=== PATIENT | male | born 1990 | race Caucasian/White ===

== ENCOUNTER 2016-05-28 12:09 | Inpatient (IN) | payer OTHER ==
--- NOTE | ~2016-05-28 | PN ---
Unit #: [id number] #: [id number] Patient: MATIAS REYES [id number] [facility] [address] [place] [address] [id number] I MR#: [id number] NAME: MATIAS REYES ROOM: P208 Age: 26 Sex: M Admission Date: 05/28/2016 : 1990 Attending Physician: Nilo Mccall M.D. Admitting Physician: Nilo Mccall M.D. Primary Care Physician: Generic Doctor Not In System [facility] PROGRESS NOTES DATE 05/29/2016 DISCUSSION Matias Reyes is a 26-year-old male seen on 05/29/2016. Patient interviewed. Chart reviewed. Obtained information from nursing staff. Patient was compliant, cooperative, redirectable. Patient's mood sad, dysphoric. Currently detoxing from heroin. Patient withdrawn, isolative. Still having withdrawal symptoms. No aggressive behavior. Complete review of system unremarkable. MENTAL STATUS EXAMINATION General appearance, patient dressed casually. Attention span, concentration fair. Oriented in place and person. Mood and affect sad, depressed, flat affect, withdrawn, isolative, guarded. Denied any thoughts of harming self or others but sad, depressed mood. Recent and remote memory poor. Insight and judgement poor. DIAGNOSES 1. Opiate use disorder, severe. 2. Mood disorder NOS. ASSESSMENT/PLAN Advised to continue with current medication and therapeutic protocol. Will monitor response to medication and make further adjustment of medication. Dictated by... Veronica Sam/zoë TD: 05/30/2016 16:29 JOB #: [id number] Unit #: [id number] #: [id number] Patient: MATIAS REYES [place] PROGRESS NOTES Page 1 of 1 X Nilo Mccall MD PROGRESS NOTE
--- NOTE | ~2016-05-28 | PA ---
Unit #: [id number] #: [id number] Patient: MATIAS CLAY [id number] [facility] [address] [place] [address] [id number] MR#: [id number] NAME: MATIAS CLAY ROOM: P208 Age: 26 Sex: M Admission Date: 05/28/2016 : 1990 Date of Assessment: Attending Physician: Nilo Mccall M.D. Admitting Physician: Nilo Mccall M.D. Primary Care Physician: Generic Doctor Not In System PSYCHIATRIC ASSESSMENT INFORMANT The patient's reliability, fair; chart reliability, good. CHIEF COMPLAINT Opioid abuse, methamphetamine abuse and depression. HISTORY OF PRESENT ILLNESS Matias Flores is a 26-year-old male with a long history of multiple treatment at [facility], [facility]. The patient lives in a [place]. The patient presented with heroin abuse, Xanax abuse, cannabis abuse, cocaine abuse. The patient reported that he is here for detox from [place]. The patient reported currently using IV heroin. The patient also reported using Xanax 2 bars, marijuana 1 blunt daily. The patient reported feeling of hopelessness, worthlessness, poor appetite, poor sleep, withdrawal symptom. The patient scored 10 on COWS and 8 on CIWA score. The patient needed inpatient admission at this time for psychiatric stabilization. The patient currently denied any suicidal or homicidal ideation. Denied any psychotic symptom. PAST PSYCHIATRIC HISTORY Please see above, multiple treatments. FAMILY HISTORY AND SOCIAL HISTORY Poor support system. Lives in a [place]. History of substance abuse in the family. MEDICAL HISTORY Remarkable for history of epilepsy. Musculoskeletal; muscle strength and tone, no atrophy or abnormal movement. Gait normal. MEDICATION HISTORY None. ALLERGIES No known drug allergies. SUBSTANCE ABUSE HISTORY The patient reported tobacco use, age of onset 17; history of marijuana abuse, age of onset 13; crack cocaine, age of onset 18; and LSD, age of onset 21; opioid, age of onset 15; amphetamine, age of onset 26; benzodiazepine, age of onset 15. The patient reported history of blackout, IV drug use, withdrawal symptoms. Currently reporting abdominal cramping, muscle cramping, diaphoresis, diarrhea, headache, irritability, Unit #: [id number] #: [id number] Patient: MATIAS CLAY nervousness, poor appetite. REVIEW OF SYSTEMS HEENT: Eyes, clear. Ears, nose, mouth, and throat; clear. CARDIOVASCULAR: Unremarkable. RESPIRATORY: Unremarkable. GI: Unremarkable. : Unremarkable. SKIN: Unremarkable. LYMPH NODE: Unremarkable. NEUROLOGIC: Unremarkable. ENDOCRINE: Unremarkable. HEMATOLOGIC: Unremarkable. ALLERGIC: Unremarkable. IMMUNOLOGIC: Unremarkable. MUSCULOSKELETAL: Muscle strength and tone, no atrophy or abnormal movement. Gait normal. MENTAL STATUS EXAMINATION CONSTITUTIONAL: Measurement of vital signs; temperature is 98.1, heart rate 108, respirations 18, blood pressure 119/70, height 6 feet 4 inches, weight 180 pounds. General appearance: The patient dressed casually. The patient did not show any facial deformity. MUSCULOSKELETAL: Please see above. PSYCHIATRIC EXAMINATION Description of speech; regular rate, normal volume. Description of thought process, circumstantial. Description of association; guarded, but denied any thoughts of harming self or others, but substance abuse. Description of the patient's judgment, concerning. Everyday activity, poor. Social situation, poor and concerning. Psychiatric condition, poor. Complete mental status examination; oriented in time, place, and person. Recent and remote memory, fair. Attention span and concentration, fair. Language, able to name object and repeat phrases. Fund of knowledge, aware of current event, passive vocabulary intact. Mood and affect, sad and dysphoric. Insight and judgment, fair to poor. ASSETS AND LIABILITIES Assets; the patient is articulate and able to take care of his ADL. Liability; history of substance abuse. ADMITTING DIAGNOSES Psychiatric: 1. Opioid abuse disorder, severe, F11.20. 2. Sedative-hypnotic use disorder, F13.20, moderate. 3. Cannabis abuse disorder, moderate, F12.20. 4. Cocaine use disorder, severe, F14.20. 5. Mood disorder, not otherwise specified. Secondary diagnosis: Deferred. Medical diagnosis: History of epilepsy. Stressors: Psychosocial stressors. PSYCHIATRIC PLAN AND TREATMENT GOAL AND DISCHARGE PLAN 1. Advised to admit the patient on the inpatient unit. Provide safe, Unit #: [id number] #: [id number] Patient: MATIAS CLAY supportive, and structured environment. 2. Ordered labs; CBC, CMP, UA, and UDS. 3. Precaution for seizure, detox protocol and detox monitoring. 4. The patient was started on detox protocol. If needed, consider further adjustment of medication. 5. Treatment goal is to attain euthymic mood, gain insight into his problem, and learn coping skills. 6. Discharge plan; plan to stabilize the patient and consider followup in outpatient program. ESTIMATED LENGTH OF STAY 5 days. Dictated by... Veronica Sam/gopal TD: 05/29/2016 02:28 JOB #: [id number] PSYCHIATRIC ASSESSMENT Page 1 of 1 X Nilo Mccall MD X PSYCHIATRIC ASSESSMENT
--- NOTE | ~2016-05-28 | HP ---
Unit #: [id number] #: [id number] Patient: MATIAS CLAY [id number] [place] [address] [id number] I MR#: [id number] NAME: MATIAS CLAY ROOM: P208 Age: 26 Sex: M Admission Date: 05/28/2016 : 1990 Attending Physician: Nilo Mccall M.D. Admitting Physician: Nilo Mccall M.D. Primary Care Physician: Generic Doctor Not In System HISTORY AND PHYSICAL HISTORY OF PRESENT ILLNESS Matias is a 26 year old admitted to [address] [place] [address] because of his drug use. He shoots heroin. PAST MEDICAL HISTORY Long history of opioid abuse to include IV heroin PAST SURGICAL HISTORY Right arm ALLERGIES No known drug allergies. SOCIAL HISTORY Smokes greater than one pack per day. Denies alcohol. Admits to a long history of opioid abuse to include IV heroin. FAMILY HISTORY Medically noncontributory. REVIEW OF SYSTEMS CONSTITUTIONAL: No fever or chills. HEENT: Denies any sore throat, ear pain or runny nose. CARDIOVASCULAR: Denies chest pain, irregular heart rhythm or palpitations. CHEST: Denies shortness of breath or cough. No hemoptysis. GASTROINTESTINAL: Denies nausea, vomiting, diarrhea or chronic constipation. ENDOCRINE: Denies history of increased thirst or urination. No recent significant weight loss or gain. GENITOURINARY: Denies dysuria, frequency, or hematuria. SKIN: Denies any rashes. HEMATOLOGIC: Denies history of increased bleeding or bruising. MUSCULOSKELETAL: Denies any hot, swollen joints. No generalized muscle pain. NEUROLOGIC: Denies problems with vision or speech. No frequent, severe headaches. No numbness, tingling or weakness in any extremities. Denies loss of bladder or bowel control. CURRENT MEDICATIONS Detox protocol PHYSICAL EXAMINATION Unit #: [id number] #: [id number] Patient: MATIAS CLAY GENERAL: Alert, well-nourished, in no apparent distress. VITAL SIGNS: Blood pressure 120/70, heart rate 100, respirations 16, temperature 98.6. WEIGHT: 180 pounds. HEIGHT: 6'4". SKIN: Warm and dry without rash or lesion. HEENT: Normocephalic. TMs not viewed. Oral and nasal passages clear. Conjunctivae clear. Pupils equal, round and reactive to light and accommodation. Extraocular movements intact. NECK: Supple without lymphadenopathy or thyromegaly. HEART: Regular rate and rhythm without murmur. LUNGS: Clear. ABDOMEN: Soft, nontender. : Not done. EXTREMITIES: No evidence of cyanosis, clubbing or edema. Moves all extremities without focal deficit. NEUROLOGICAL: Grossly within normal limits. Cranial Nerves: II: Visual neri are intact. III, IV AND : Extraocular movements are intact. Pupils are equal, round and reactive to light. V: Facial sensation is grossly normal. VII: Facial movements and expression are normal. VIII: Auditory acuity grossly intact. IX, X: Uvula is midline. Phonation is normal. XI: Patient shrugs shoulders and turns head normally. XII: Tongue protrudes in the midline. Sensory and Motor Function: Sensory and motor sensation is grossly normal. Motor: moves all extremities well. Coordination: Gait is normal. Deep Tendon Reflexes: Intact. IMPRESSION Psychiatric admission RECOMMENDATIONS PSYCHIATRIC: Per psychiatrist. MEDICAL: I see no contraindications to participating in facility's activities. MEDICAL PROGNOSIS Good. MEDICAL CONDITION Stable. Dictated by... Helio ChoudhuryALulu-Malou. for Veronica De La Torre/joseph TD: 05/28/2016 23:10 JOB #: [id number] Unit #: [id number] #: [id number] Patient: MATIAS CLAY HISTORY AND PHYSICAL Page 1 of 1 X Abigail Carlisle X HISTORY AND PHYSICAL
--- NOTE | ~2016-05-28 | DS ---
Unit #: [id number] #: [id number] Patient: RASHEEDA CLAY [id number] [facility] [address] [place] [address] [id number] I MR#: [id number] NAME: RASHEEDA CLAY ROOM: P208 Age: 26 Sex: M Admission Date: 05/28/2016 : 1990 Discharge Date: 05/30/2016 Attending Physician: Nilo Mccall M.D. DISCHARGE SUMMARY REASON FOR ADMISSION Heroin detox. DIAGNOSTIC STUDIES LABORATORY RESULTS: Unable to obtain. HOSPITAL COURSE The patient was admitted to inpatient unit on 05/28/2016 and discharged on 05/30/2016. The patient was treated with detox protocol, detox monitoring, chemical dependency group, psychoeducation, and psychotherapy; responded well with the above modalities of treatment. Subsequently, the patient was discharged with a plan to follow up in outpatient program. DISCHARGE MEDICATIONS None. DISCHARGE DIAGNOSES Psychiatric: 1. Opioid use disorder, severe, F11.20. 2. Sedative-hypnotic use disorder, F13.20. 3. Cannabis abuse disorder, moderate. 4. Cocaine use disorder, severe. 5. Mood disorder, not otherwise specified. Secondary diagnosis: Deferred. Medical diagnosis: History of epilepsy. Stressors: Psychosocial stressors. DISCHARGE INSTRUCTIONS The patient is to follow up in outpatient program as per geriatric social worker. CONDITION ON DISCHARGE The patient was pleasant and cooperative. Denied any psychotic symptom or any suicidal ideation. PROGNOSIS Guarded. DIET AND ACTIVITY As tolerated. Unit #: [id number] #: [id number] Patient: RASHEEDA CLAY Dictated by... Veronica Sam/gopal TD: 05/31/2016 22:09 JOB #: [id number] DISCHARGE SUMMARY Page 1 of 1 X Nilo Mccall MD X DISCHARGE SUMMARY
== END 2016-05-30 10:00 | DRG 897 ==
LOC: P2S 12:09
PROC: HZ2ZZZZ Detoxification Services for Substance Abuse Treatment (ICD-10-PCS; principal; 2016-05-28)
DX: F11.20 Opioid dependence, uncomplicated (principal); F13.20 Sedative, hypnotic or anxiolytic dependence, uncomplicated; F14.20 Cocaine dependence, uncomplicated; F12.20 Cannabis dependence, uncomplicated; F39 Unspecified mood [affective] disorder; G40.909 Epilepsy, unspecified, not intractable, without status epilepticus

== ENCOUNTER 2016-09-02 15:19 | Emergency (ER) | payer OTHER ==
--- NOTE | ~2016-09-02 | CT99 ---
[facility] A Service of [facility] & [facility] RADIOLOGY TEXT RESULTS PATIENT: RASHEEDA BERMAN JR LOCATION: SED : [birth year] UNIT #: [id number] AGE: [address]: ITZEL MUNOZ SEX: M ORDER DR: [id number] [address] [address] [id number] MR#: [id number] Acc #: [id number] NAME: RASHEEDA BERMAN JR : 1990 SEX: M STUDY DATE/TIME: 09/02/2016 18:37 UNIT: SED ROOM: STUDY DESCRIPTION: CT Maxillofacial Area W Cont Attending Physician: Itzel Munoz Aprn Ordering Physician: Itzel Munoz Aprn Primary Care Physician: eTo Not Listed MEDICAL IMAGING REPORT This report is preliminary unless electronic signature is present. EXAM CT maxillofacial area with contrast. HISTORY Left eyelid, brow pimple possible infection, pain. TECHNIQUE CT of the facial region performed with intravenous administration 100 mL Isovue-370. Coronal reconstructions were performed. Study is markedly degraded by motion artifact. This CT exam was performed with one or more of the following radiation dose reduction techniques: automatic exposure control, adjustment of mA and/or kV according to patient size, and iterative reconstruction. COMPARISON There are no comparisons. FINDINGS Visualized portions of brain unremarkable. The intraorbital soft tissues show no acute abnormality. The nasopharyngeal, oropharyngeal, pharyngeal mucosal and retropharyngeal spaces are unremarkable in visualized extent. The submandibular and parotid glands are unremarkable. There is no upper cervical adenopathy. The visualized paranasal sinuses show complete opacification left frontal sinus. Opacification of some left ethmoid air cells. Mucosal thickening left maxillary sinus. The mastoid air cells are clear. Assessment of the bony structures significantly limited by motion artifact. No displaced fracture is clearly seen but in the nasal ethmoidal region where the motion artifact is most pronounced, displaced fracture could be obscured. If there is clinical concern for acute fracture, consider repeat examination. Poor dentition. Multifocal lucencies in upper teeth, particularly the left fifth and sixth teeth, and right sixth tooth, most suggestive of extensive dental caries. Suggestion STS. [facility] A Service of [facility] & [facility] RADIOLOGY TEXT RESULTS PATIENT: RASHEEDA BERMAN JR LOCATION: [facility] : [birth year] UNIT #: [id number] AGE: [address]: ITZEL MUNOZ SEX: M ORDER DR: of dental caries involving the lower left fifth and sixth tooth and the lower right sixth tooth. The visualized cervical spine is unremarkable. Extensive soft tissue swelling centered at the left supraorbital region extending superiorly into the left frontal scalp and inferiorly into the pre-maxillary soft tissues. There is marked soft tissue swelling in the upper eyelid and left brow region. In the left brow region, there is an ill-defined area of hypodensity in the subcutaneous fat measuring about 2 cm x 1 cm. There is no peripheral enhancement to clearly indicate abscess. Along the superficial aspect of this focus, there is a small cutaneous nodule measuring about 3 mm in diameter which may represent a raised skin lesion or cutaneous drainage point for the subcutaneous infection. The hypodense area may represent phlegmonous change in the subcutaneous fat. Clinical followup to resolution is recommended. The overall findings suggest extensive facial cellulitis on the left. There is no left intraorbital extension. The inflamed left facial soft tissues show generalized enhancement. IMPRESSION 1. Abnormal examination. See complete dictation above for full details. Please note the study is significantly degraded by motion artifact. The findings most suggestive of extensive left-sided facial cellulitis, centered at the left upper eyelid and left supraorbital brow region. Extensive skin thickening and subcutaneous fat stranding and haziness with associated generalized enhancement. There is no intraorbital extension. The left intraorbital soft tissues are unremarkable and the intraorbital fat is pristine. Soft tissue thickening in the left supraorbital region is up to about 11 mm in thickness. In the left supraorbital/brow region, there is a subcutaneous focus of relative hypodensity measuring 2 cm x 1 cm, with a small cutaneous nodule superficial to it. This may represent evolving subcutaneous phlegmonous change. I do not see distinct peripheral enhancement to clearly indicate abscess. I cannot exclude phlegmonous change or early developing abscess in this region. The subcutaneous area of hypodensity has a soft tissue or a complicated fluid density. Correlate with exam. Clinical followup recommended. The left-sided facial soft tissue swelling extends inferiorly into the left premaxillary region and to a lesser extent along the superficial facial soft tissues of the left jaw. Cranially it extends into the left frontal and temporal scalp. No other areas of localized subcutaneous hypointensity and no soft tissue defect, subcutaneous air, or radiodense foreign body. 2. Paranasal sinus disease with complete opacification of the left frontal sinus and opacification of some left ethmoid air cells. 3. No displaced fracture is seen but there is marked motion artifact degrading assessment of the nasal and ethmoid region. 4. Multifocal dental caries. Correlate with dental examination. [facility]. [facility] A Service of [facility] RADIOLOGY TEXT RESULTS PATIENT: RASHEEDA BERMAN JR LOCATION: [facility] [place] : 88 UNIT #: [id number] AGE: [address]: ITZEL MUNOZ SEX: M ORDER DR: Dictated by... Onofre Engle M.D. THIS IS AN ELECTRONICALLY VERIFIED REPORT Onofre Engle M.D. at 09/03/2016 6:49 PM Aye TD: 09/03/2016 11:28 JOB #: [id number] MEDICAL IMAGING REPORT Page 1 of 1
[2016-09-02 18:04] LABS: BASOPHIL% 0.5 % (0-2.5); EOSINOPHIL# 0.3 X10e3 (0-0.7); EOSINOPHIL% 3.2 % (0.0-7.0); HEMATOCRIT 40.6 % (38.0-50.0); HEMOGLOBIN 14.1 gm/dL (13.0-16.0); LYMPHOCYTE# 1.6 X10e3 (1.0-3.5); MEAN CELL VOLUME 82.9 FL (83-96); MEAN CORPUSCULAR HEMOGLOBIN 28.7 PG (28-34); MEAN CORPUSCULAR HGB CONC 34.6 g/dL (30-36); MEAN PLATELET VOLUME 8.4 FL (6.5-11.5); MONOCYTE# 0.8 X10e3 (0-1.0); NEUTROPHIL# 5.7 X10e3 (1.5-7.1); NEUTROPHIL% 68.3 % (40-75); PLATELET COUNT 234 X10e3 (140-420); RED CELL DISTRIBUTION WIDTH 13.4 % (11.0-15.5); WHITE BLOOD COUNT 8.4 X10e3 (4.0-10.5)
[2016-09-02 18:08] LABS: DIFF IND NO
[2016-09-02 18:20] LABS: CALCIUM SERUM 8.7 mg/dL (8.4-10.2); CREATININE SERUM 0.8 mg/dL (0.6-1.4); GLOM FILT RATE Estimated 122.5 mL/min (>60); POTASSIUM 4.1 mmol/L (3.5-5.1)
== END 2016-09-02 20:11 | disposition left against medical advice (07) ==
LOC: SED 15:19
PROVIDERS: Nurse Practitioner Family
DX: L03.211 Cellulitis of face (principal); F11.10 Opioid abuse, uncomplicated; F17.210 Nicotine dependence, cigarettes, uncomplicated
CPT/HCPCS: 36415; 70487; 80048; 85025; 96374; 99284; Q9967

== ENCOUNTER 2016-09-02 21:44 | Emergency (ER) | payer OTHER | END 2016-09-03 01:59 | disposition home or self-care (01) | LOC: CED 21:44 | DX: L02.01 Cutaneous abscess of face (principal); L03.211 Cellulitis of face; F17.200 Nicotine dependence, unspecified, uncomplicated | CPT/HCPCS: 10060; 99283 ==